=== PATIENT | female | born 1955 | race Caucasian/White ===

== ENCOUNTER 2018-12-15 13:26 | Day surgery (SDC) | payer OTHER ==
[~2018-12-15] VITALS: Ht 162.6 cm; Wt 57.1 kg
[~2018-12-15 13:26] MED LIST: CALCIUM500 M1 PO; CELEXA20 MG PO; MOBIC15 MG PO; SYNTHROID50 MCG PO; VALTREX500 MG PO; VITAMIN D400 UNIT PO
--- NOTE | 2018-12-15 15:07 | NUR ---
12/15/18 Nehal7 Dipika Shelby 1505-PATIENT ARRIVED TO PACU ON 3L NC PLACED ON 2L. PATIENT AWAKE DROWSY DENIES PAIN OR ABDOMEN ABDOMEN SOFT. CO2 46. IVF INFUSING. ENCOURAGED TO PASS GAS.
--- NOTE | 2018-12-16 12:28 | OR ---
[facility] [address], [place] [address] Signed DATE OF OPERATION: 12/15/2018 SURGEON: Adebayo Rios MD PREOPERATIVE DIAGNOSIS: Colon screening. POSTOPERATIVE DIAGNOSIS: Normal colon to cecum. PROCEDURE: Total colonoscopy to cecum. ANESTHESIA: Intravenous sedation, fentanyl 200 mcg, and Versed 8 mg. INDICATION: This 63-year-old white woman is a patient Dr. Teressa Aragon. She underwent colonoscopy in 2007 for indication of diarrhea. There were no findings of concern. She has no family history of colon cancer that she is aware of. She has undergone knee replacement in September 2017 and in 1983. She was admitted to undergo surveillance colonoscopy. She understands the risks of bleeding, infection, and perforation. FINDINGS: The prep was good. Complete colonoscopy was undertaken to the cecum. Passage to the sigmoid and left colon was challenging, but accomplished safely. There was no sign of polyps, diverticular formation, colitis, or cancer. DESCRIPTION OF PROCEDURE: The patient was brought to the endoscopy suite and placed in lateral decubitus position given intravenous sedation to the point of slurred speech and nystagmus. Preoperative antibiotic vibramycin was given. Rectal examination was normal. An Olympus video colonoscope was passed in the rectum and manipulated throughout the colon ultimately intubating the cecum. Passage to the sigmoid and left colon was somewhat challenging, but accomplished safely. Characteristic landmarks including the ileocecal valve were noted at the cecum. The scope was carefully withdrawn from that point. Examination throughout showed no sign of abnormality, specifically no polyps, diverticular formation, colitis, or cancer. Retroflex view was normal as well. The scope was removed and the patient taken to recovery room in good condition. Electronically Signed By: ADEBAYO RIOS MD 12/16/18 1228 PATIENT NAME: YANDEL CRUZ OPERATIVE REPORT DATE OF : 55 REPORT #: [id number] PHYSICIAN: ADEBAYO RIOS MD PCP: PARAG GUARDADO MD REPORT IS CONFIDENTIAL AND NOT TO BE RELEASED WITHOUT AUTHORIZATION [facility] [address], [place] [address] Signed CONCLUDING DIAGNOSIS: Normal colon to cecum. PLAN: Recommend repeat colonoscopy in 10 years, sooner if clinically indicated. She will return to the ongoing care of Dr. Teressa Aragon. Adebayo Rios MD JM/MODL /[id number] cc: Niya Aragon MD Copies: NIYA ARAGON MD ~ Electronically Signed By: ADEBAYO RIOS MD 12/16/18 1228 PATIENT NAME: YANDEL CRUZ OPERATIVE REPORT DATE OF : 55 REPORT #: [id number] PHYSICIAN: ADEBAYO RIOS MD PCP: PARAG GUARDADO MD REPORT IS CONFIDENTIAL AND NOT TO BE RELEASED WITHOUT AUTHORIZATION
== END 2018-12-15 16:00 | disposition home or self-care (01) ==
LOC: OPS 13:26 → DS 13:26 → OPS 16:00
PROVIDERS: Surgery
PROC: 0DJD8ZZ Inspection of Lower Intestinal Tract, Via Natural or Artificial Opening Endoscopic (ICD-10-PCS; principal; 2018-12-15 13:00)
DX: Z12.11 Encounter for screening for malignant neoplasm of colon (principal); E03.9 Hypothyroidism, unspecified; M19.90 Unspecified osteoarthritis, unspecified site; F32.9 Major depressive disorder, single episode, unspecified; Z96.652 Presence of left artificial knee joint
CPT/HCPCS: J2250; J3010; J3490; J7120